=== PATIENT | male | born 1970 | race Caucasian/White ===

== ENCOUNTER 2025-04-03 14:17 | Inpatient (IN) | payer MEDICAID ==
[~2025-04-03] VITALS: Ht 177.8 cm; Wt 65.3 kg
[2025-04-03 15:25] LABS: PLATELET COUNT (AUTO) 225 K/uL (150-450); RED BLOOD CELL COUNT(AUTO) 4.14 MIL/uL (4.5-6.0); RED CELL DISTRIBUTION WIDTH 13.5 % (11.5-15.0); WHITE BLOOD COUNT (AUTO) 8.2 K/uL (4.3-11.0)
[2025-04-03 15:34] LABS: CALCIUM, SERUM 9.3 mg/dL (8.5-10.1); CREATININE 0.8 mg/dL (0.6-1.3); SODIUM SERUM 142.0 mmol/L (136-145); UREA NITROGEN, BLOOD 19.0 mg/dL (7-18)
[2025-04-03 15:39] LABS: ASPARTATE AMINOTRANSFERASE 14.0 U/L (15-37); INR 1.12 (0.91-1.10); TOTAL PROTEIN, SERUM 6.9 g/dL (6.4-8.2)
[2025-04-03] MEDS ORDERED: IV NS 0.9% 250 ML IV ONE (16:03)
[2025-04-03] MEDS ORDERED: IOHEXOL-300 100 ML VIAL IV ONE (16:03)
[2025-04-03] MEDS ORDERED: DEXT38GE12 PO (17:41)
[2025-04-03] MEDS ORDERED: ONDA-97 PO (17:41)
[2025-04-03] MEDS ORDERED: BISA-79 (17:41)
[2025-04-03] MEDS ORDERED: BISA10SU11 RC (17:41)
[2025-04-03] MEDS ORDERED: QUET25TA PO (17:41)
[2025-04-03] MEDS ORDERED: HYDR-3980 PO (17:41)
[2025-04-03] MEDS ORDERED: LEVE100023 PO (17:41)
[2025-04-03] MEDS ORDERED: GLUC1KIT IM (17:41)
[2025-04-03] MEDS ORDERED: CARV12.52 PO (17:41)
[2025-04-03] MEDS ORDERED: ACET325T53 PO (17:41)
[2025-04-03] MEDS ORDERED: METO2.5T7 PO (17:41)
[2025-04-03] MEDS ORDERED: HYDR-4209 PO (17:41)
[2025-04-03] MEDS ORDERED: ATOR20TA PO (17:41)
[2025-04-03] MEDS ORDERED: APIX5TAB PO (17:41)
[2025-04-03] MEDS ORDERED: DOCU100C36 PO (17:41)
[2025-04-03] MEDS ORDERED: IPRA3AMP23 IH ×2 (17:41)
[2025-04-03] MEDS ORDERED: NITR0.4T SL (17:41)
[2025-04-03] MEDS ORDERED: POLY17PO4 PO (17:41)
[2025-04-03] MEDS ORDERED: PANT40TA49 PO (17:41)
[2025-04-03 18:46] LABS: APPEARANCE,URINE SLIGHTLY CLOUDY (CLEAR); BLOOD, URINE 3+ Ery/uL (NEGATIVE); LEUKOCYTE ESTERASE ,URINE TRACE (NEGATIVE); NITRITE, URINE NEGATIVE (NEGATIVE); UGLUCOSE NEGATIVE (NEGATIVE)
[2025-04-03 19:00] LABS: ADD URINE CULTURE YES; CALCIUM OXALATE CRYSTALS,UR Few /HPF (None Seen)
[2025-04-03 19:02] LABS: URINE AMORPHOUS URATE Moderate /HPF (None Seen)
[2025-04-03] MEDS ORDERED: Z GUARD REMEDY 4 OZ OINT TP PRN (19:30)
[2025-04-03] MEDS ORDERED: ACETAMINOPHEN 325 MG TABLET PO PRN (19:30)
[2025-04-03] MEDS ORDERED: MAGNESIUM HYDROXIDE 30 ML UDC PO PRN (19:30)
[2025-04-03] MEDS ORDERED: ONDANSETRON HCL/PF 4 MG/2 ML VIAL IVP PRN (19:30)
[2025-04-03] MEDS ORDERED: MAG HYDROX/AL HYDROX/SIMETH 30 ML UDC PO PRN (19:30)
[2025-04-03] MEDS: HYDROCODONE/APAP 5/325MG TABLET PO PRN (19:45)
[2025-04-03 20:00] VITALS: BP 108/71; TEMP 97.9; O2SAT 96
[2025-04-03] MEDS: POTASSIUM CL. PREMIX PERIPHER. 50 ML IV SCH (20:08)
[2025-04-03] MEDS: IV NS 0.9% 1,000 ML IV PRN (20:09)
[2025-04-03] MEDS: CEFTRIAXONE 1 G in IV D5W 50 ML IV SCH (20:21)
[2025-04-04] VITALS: BP_SYST 111; BP_SYST 130; BP_DIAS 76; BP_DIAS 82; TEMP 98; O2SAT 94; O2SAT 97
[2025-04-04] MEDS: ZOLPIDEM TARTRATE 5 MG TABLET PO PRN (02:07)
[2025-04-04 04:00] VITALS: BP 121/80; TEMP 97.8; O2SAT 97
[2025-04-04 07:38] LABS: PLATELET COUNT (AUTO) 187 K/uL (150-450); RED BLOOD CELL COUNT(AUTO) 4.22 MIL/uL (4.5-6.0); RED CELL DISTRIBUTION WIDTH 13.4 % (11.5-15.0); WHITE BLOOD COUNT (AUTO) 8.7 K/uL (4.3-11.0)
[2025-04-04 08:00] VITALS: BP 110/69; TEMP 97.7; O2SAT 96
[2025-04-04 08:07] LABS: CALCIUM, SERUM 9.4 mg/dL (8.5-10.1); CREATININE 0.8 mg/dL (0.6-1.3); PHOSPHORUS 3.7 mg/dL (2.5-4.9); SODIUM SERUM 141.0 mmol/L (136-145); UREA NITROGEN, BLOOD 17.0 mg/dL (7-18)
[2025-04-04] MEDS: PANTOPRAZOLE 40 MG TABLET.DR PO SCH (08:07)
[2025-04-04 08:20] LABS: LDL 61.0 mg/dL (0-99)
[2025-04-04 12:00] VITALS: BP 118/72; TEMP 98.2; O2SAT 95
[2025-04-04 16:00] VITALS: BP 114/78; TEMP 98.7; O2SAT 96
[2025-04-04] MEDS: PHENAZOPYRIDINE HCL 200 MG TABLET PO SCH (16:33)
[2025-04-04 20:00] VITALS: BP 125/75; TEMP 98.2; O2SAT 96
[2025-04-05] VITALS: BP 130/82; TEMP 98; O2SAT 94
[2025-04-05 04:00] VITALS: BP 135/72; TEMP 97.8; O2SAT 95
[2025-04-05 08:00] VITALS: BP 113/89; TEMP 97.8; O2SAT 95
[2025-04-05 12:22] VITALS: BP 113/89; TEMP 97.8; O2SAT 95
[2025-04-05 14:31] LABS: PLATELET COUNT (AUTO) 237 K/uL (150-450); RED BLOOD CELL COUNT(AUTO) 4.21 MIL/uL (4.5-6.0); RED CELL DISTRIBUTION WIDTH 13.5 % (11.5-15.0); WHITE BLOOD COUNT (AUTO) 12.3 K/uL (4.3-11.0)
[2025-04-05 14:45] LABS: ASPARTATE AMINOTRANSFERASE 9.0 U/L (15-37); CALCIUM, SERUM 9.1 mg/dL (8.5-10.1); CREATININE 0.7 mg/dL (0.6-1.3); PHOSPHORUS 2.7 mg/dL (2.5-4.9); SODIUM SERUM 141.0 mmol/L (136-145); TOTAL PROTEIN, SERUM 6.9 g/dL (6.4-8.2); UREA NITROGEN, BLOOD 13.0 mg/dL (7-18)
[2025-04-05 16:00] VITALS: BP 118/78; TEMP 98.2; O2SAT 95
[2025-04-05] MEDS: LACTULOSE 10 G/15 ML UDC (PYXIS) PR ONE (17:17)
[2025-04-05] MEDS: POLYETHYLENE GLYCOL 3350 17 GM POWD.PACK PO SCH (17:17)
[2025-04-05] MEDS: MINERAL OIL 133 ML (PYXIS) 1 EA ENEMA RC ONE (17:17)
[2025-04-05] MEDS: POTASSIUM CHLORIDE 20 MEQ TAB.PRT.SR PO ONE (17:17)
[2025-04-05 20:00] VITALS: BP 123/76; TEMP 98.2; O2SAT 95
[2025-04-05] MEDS: HYDROCODONE/APAP 10/325MG TABLET PO PRN (21:26)
[2025-04-06 04:00] VITALS: BP 120/75; TEMP 98.1; O2SAT 95
[2025-04-06] MEDS: MINERAL OIL 133 ML (PYXIS) 1 EA ENEMA RC ONE ×2 (09:33→09:34)
[2025-04-06] MEDS: LEVETIRACETAM (250 MG) 250 MG TABLET PO SCH (09:33)
[2025-04-06] MEDS: APIXABAN 5 MG TABLET PO SCH (09:33)
[2025-04-06] MEDS: QUETIAPINE FUMARATE 25 MG TABLET PO SCH (09:33)
[2025-04-06 10:44] LABS: PLATELET COUNT (AUTO) 211 K/uL (150-450); RED BLOOD CELL COUNT(AUTO) 3.89 MIL/uL (4.5-6.0); RED CELL DISTRIBUTION WIDTH 13.4 % (11.5-15.0); WHITE BLOOD COUNT (AUTO) 8.2 K/uL (4.3-11.0)
[2025-04-06 10:59] LABS: CALCIUM, SERUM 9.3 mg/dL (8.5-10.1); CREATININE 0.7 mg/dL (0.6-1.3); PHOSPHORUS 3.3 mg/dL (2.5-4.9); SODIUM SERUM 141.0 mmol/L (136-145); UREA NITROGEN, BLOOD 11.0 mg/dL (7-18)
[2025-04-06] MEDS: CARVEDILOL 12.5 MG TABLET PO SCH (11:13)
[2025-04-06 12:00] VITALS: BP 110/56; TEMP 98.3; O2SAT 94
[2025-04-06] MEDS: ENSURE ENLIVE 237 ML LIQUID (VANILLA) PO SCH (17:00)
[2025-04-06] MEDS ORDERED: CARVEDILOL 12.5 MG TABLET PO SCH (17:00)
[2025-04-06] MEDS: LACTULOSE 10 G/15 ML UDC (PYXIS) PO ONE (17:05)
[2025-04-06 20:00] VITALS: BP 96/61; TEMP 98.7; O2SAT 95
[2025-04-06] MEDS: ATORVASTATIN 10 MG TABLET PO SCH (22:00)
[2025-04-07] MEDS ORDERED: METOLAZONE 2.5 MG TABLET PO SCH (09:00)
== END 2025-04-06 23:55 | DRG 466 ==
LOC: ER 14:30 → MEDSG1 17:44 → TELE1 19:04 → MEDSG1 04-05 10:05
PROVIDERS: ADMIT Nurse Practitioner Acute Care; ATTEND Nurse Practitioner Family
DX: T83.83XA Hemorrhage due to genitourinary prosthetic devices, implants and grafts, initial encounter (principal); G93.41 Metabolic encephalopathy; D68.59 Other primary thrombophilia; I69.351 Hemiplegia and hemiparesis following cerebral infarction affecting right dominant side; E11.22 Type 2 diabetes mellitus with diabetic chronic kidney disease; B96.89 Other specified bacterial agents as the cause of diseases classified elsewhere; Z79.01 Long term (current) use of anticoagulants; N18.9 Chronic kidney disease, unspecified; I12.9 Hypertensive chronic kidney disease with stage 1 through stage 4 chronic kidney disease, or unspecified chronic kidney disease; F03.90 Unspecified dementia, unspecified severity, without behavioral disturbance, psychotic disturbance, mood disturbance, and anxiety; R56.9 Unspecified convulsions; K80.10 Calculus of gallbladder with chronic cholecystitis without obstruction; I48.91 Unspecified atrial fibrillation; Z87.09 Personal history of other diseases of the respiratory system; E11.65 Type 2 diabetes mellitus with hyperglycemia; Y84.6 Urinary catheterization as the cause of abnormal reaction of the patient, or of later complication, without mention of misadventure at the time of the procedure; Y92.129 Unspecified place in nursing home as the place of occurrence of the external cause; R31.9 Hematuria, unspecified; Z79.51 Long term (current) use of inhaled steroids; Z79.899 Other long term (current) drug therapy; Z98.890 Other specified postprocedural states; E87.6 Hypokalemia; E78.5 Hyperlipidemia, unspecified; Z74.09 Other reduced mobility; Z74.01 Bed confinement status; K59.00 Constipation, unspecified
CPT/HCPCS: 36415; 71045-TC; 76700-TC; 78226; 80048-TC; 80061-TC; 80076-TC; 81001; 83735-TC; 84100-TC; 85025-TC; 85730-TC; 87081-TC; 87086-TC; 92526; 92611; 97110-TC; 97530-TC; A4223; A9537; G0378; J0696; J3480; J7030; J7050; J7060; Q9967